=== PATIENT | female | born 1980 | race Caucasian/White ===

== ENCOUNTER 2019-12-22 23:04 | Emergency (ER) | payer SELFPAY ==
[~2019-12-22] VITALS: Ht 160 cm; Wt 109.1 kg
[2019-12-23] MEDS ORDERED: meperidine/PF 50mg/ml syringe IV ONE (00:10)
[2019-12-23] MEDS ORDERED: glucagon, human recombinant 1mg kit IV ONE (00:10)
[2019-12-23] MEDS ORDERED: normal saline 1000ml 1,000 ML IV ONE (00:11)
[2019-12-23] MEDS ORDERED: meperidine/PF 50mg/ml syringe IV PRN (01:55)
[2019-12-23 02:01] LABS: BASOPHILS # (AUTO) 0.1 X10'3 (0-0.2); BASOPHILS % (AUTO) 0.5 % (0-1); EOSINOPHILS # (AUTO) 0.1 X10'3 (0-0.9); EOSINOPHILS % (AUTO) 0.4 % (0-6); HEMATOCRIT 38.7 % (35.0-45.0); HEMOGLOBIN 12.4 g/dl (12.0-16.0); LYMPHOCYTES # (AUTO) 1.7 X10'3 (1.1-4.8); LYMPHOCYTES % (AUTO) 11.9 % (21-51); MEAN CORPUSCULAR HEMOGLOBIN 27.5 PG (27.0-31.0); MEAN CORPUSCULAR HGB CONC 32.1 g/dL (33.0-36.5); MEAN CORPUSCULAR VOLUME 85.9 FL (78-98); MEAN PLATELET VOLUME 8.7 FL (7.4-10.4); MONOCYTES # (AUTO) 1.1 X10'3 (0-0.9); MONOCYTES % (AUTO) 7.7 % (2-12); NEUTROPHILS # (AUTO) 11.7 X10'3 (1.8-7.7); NEUTROPHILS % (AUTO) 79.5 % (42-75); PLATELET COUNT 287 X10'3 (140-440); WHITE BLOOD COUNT 14.7 X10'3 (4.5-11.0)
[2019-12-23 02:13] LABS: PARTIAL THROMBOPLASTIN TIME 29 SECONDS (22-32)
[2019-12-23 02:15] LABS: ALANINE AMINOTRANSFERASE 21 U/L (12-78); ALBUMIN 3.2 G/DL (3.4-5.0); ALBUMIN/GLOBULIN RATIO 0.8 (1.1-1.5); ALKALINE PHOSPHATASE 91 IU/L (46-116); ANION GAP 11 (8-16); ASPARTATE AMINO TRANSFERASE 16 U/L (10-37); BILIRUBIN,TOTAL 0.3 MG/DL (0.1-1.0); BLOOD UREA NITROGEN 12 MG/DL (7-18); BUN/CREATININE RATIO 14.1 (6.6-38.0); CALCIUM 8.3 MG/DL (8.5-10.1); CHLORIDE 108 MMOL/L (99-107); CREATININE 0.85 MG/DL (0.40-0.90); GLUCOSE 122 MG/DL (70-104); POTASSIUM 3.4 MMOL/L (3.5-5.1); SODIUM 142 MMOL/L (135-145); TOTAL CARBON DIOXIDE 22.8 MMOL/L (24-32); TOTAL PROTEIN 7.2 G/DL (6.4-8.2); eGFR 75 ML/MIN
[2019-12-23] MEDS ORDERED: potassium 10mEq/100ml NS w/LIDOcaine (10mg/bag) IV ONE (04:15)
[2019-12-23] MEDS ORDERED: magnesium 2GM in 50ml NS 50 ML IV ONE (04:15)
[2019-12-23] MEDS ORDERED: potassium Cl 10 mEq/100mL bag IV ONE (04:20)
[2019-12-23 04:26] LABS: MAGNESIUM 2.1 MG/DL (1.5-2.4)
[2019-12-23] MEDS ORDERED: LIDOcaine Viscous 15ml cup MM ONE (04:45)
[2019-12-23] MEDS ORDERED: PANT-47 PO (05:55)
[2019-12-23] MEDS ORDERED: HYDR-4383 PO (05:55)
--- NOTE | 2019-12-23 06:32 | NUR ---
pt able to swallow pepsi and wayer with no distress. Dr. reis notified.
[2019-12-23 07:00] VITALS: BP 129/68
[2019-12-23] MEDS ORDERED: fentaNYL/PF 50MCG/1 ML 2ML syringe ONE (07:09)
[2019-12-23] MEDS ORDERED: MIDAZolam 5mg/5ml vial ONE (07:10)
[2019-12-23] MEDS ORDERED: LIDOcaine Viscous 15ml cup ONE (07:10)
[2019-12-23 07:28] VITALS: BP 126/73
[2019-12-23 07:38] VITALS: BP 127/73
[2019-12-23 07:48] VITALS: BP 132/71
[2019-12-23 08:29] VITALS: BP 111/57
--- NOTE | 2019-12-23 08:29 | NUR ---
pt called to be picked up in vehicle instead of motorcycle.
== END 2019-12-23 09:26 | disposition home or self-care (01) ==
LOC: ER 23:05
DX: T18.108A Unspecified foreign body in esophagus causing other injury, initial encounter (principal); K22.2 Esophageal obstruction; K21.9 Gastro-esophageal reflux disease without esophagitis; F17.200 Nicotine dependence, unspecified, uncomplicated; Z79.899 Other long term (current) drug therapy; X58.XXXA Exposure to other specified factors, initial encounter; Y93.89 Activity, other specified; Y92.89 Other specified places as the place of occurrence of the external cause; Y99.8 Other external cause status
CPT/HCPCS: 36415; 43239; 43249; 80053; 83735; 85025; 85610; 85730; 96374; 96375; 96376; 99152; 99153; 99285; C1726; J1610; J2175; J2250; J3010; J3480; J7030; J7040; A4620